=== PATIENT | female | born 1965 | race Caucasian/White ===

== ENCOUNTER → 2016-06-04 | Outpatient (CLI) | payer OTHER | LOC: FIMAGING 14:20 | PROVIDERS: ATTEND Internal Medicine Hematology & Oncology | DX: N63 Unspecified lump in breast (principal); Z85.3 Personal history of malignant neoplasm of breast | CPT/HCPCS: G0206; G0279 ==

== ENCOUNTER 2016-11-27 07:47 | Inpatient (IN) | payer OTHER ==
--- NOTE | 2016-11-27 08:12 | PDHPUP ---
History & Physical Update H&P update statement: This history and physical update is based on an assessment of the patient which was completed after admission or registration (within 24 hours), but prior to the surgery/procedure.
[2016-11-27] MEDS ORDERED: ceFAZolin 2 GM/DEXTROSE 100 ML IV ONE (08:23)
[2016-11-27] MEDS ORDERED: BUPIVACAINE/EPI 0.5% 30 ML SDV ONE (09:15)
[2016-11-27] MEDS ORDERED: LIDO/EPI 1% **for epidural** 30 ML SDV ONE ×2 (09:15→13:12)
[2016-11-27] MEDS ORDERED: LIDOCAINE 2% 5 ML SDV ONE (09:58)
[2016-11-27] MEDS ORDERED: DEXAMETHASONE 4 MG/ML VIAL ONE (09:58)
[2016-11-27] MEDS ORDERED: ONDANSETRON 4 MG/2 ML VIAL ONE ×2 (09:58→19:56)
[2016-11-27] MEDS ORDERED: ROCURONIUM 50 MG/5 ML VIAL ONE (09:58)
--- NOTE | 2016-11-27 10:02 | PDANEPAE ---
ANE History of Present Illness presents for bilateral mastectomy and reconstruction 2/2 breast cancer ANE Past Medical History - Cardiovascular History Hx Hypertension: No Hx Arrhythmias: No Hx Chest Pain: No Hx Coronary Artery / Peripheral Vascular Disease: No Hx CHF / Valvular Disease: No Hx Palpitations: No - Pulmonary History Hx COPD: No Hx Asthma/Reactive Airway Disease: No Hx Recent Upper Respiratory Infection: No Hx Oxygen in Use at Home: No Hx Sleep Apnea: No Sleep Apnea Screening Result - Last Documented: Negative - Neurologic History Hx Cerebrovascular Accident: No Hx Seizures: Yes Hx Dementia: No Neurologic History Comment: ONE SEIZURE AT AGE 1 AND AGE 49 - UNK CAUSE - Endocrine History Hx Diabetes: No - Renal History Hx Renal Disorders: No - Liver History Hx Hepatic Disorders: No - Neurological & Psychiatric Hx Hx Neurological and Psychiatric Disorders: No - Cancer History Hx Cancer: Yes Cancer History Comment: BREAST CANCER - Congenital Disorder History Hx Congenital Disorders: No - GI History Hx Gastrointestinal Disorders: No - Other Health History Other Health History: NEG - Chronic Pain History Chronic Pain: No - Surgical History Prior Surgeries: BREAST RECONSTRUCTION. LUMPECTOMY R. PYLORIC STENOSIS REPAIR INFANCY. FIBROIDECTOMY ANE Review of Systems - Exercise capacity METS (RN): 4 METS ANE Patient History - Allergies Allergies/Adverse Reactions: No Known Allergies Allergy (Unverified 11/10/12 08:46) - Home Medications Home medications: home medication list seen and reviewed Home Medications: Anastrozole [Arimidex 1 mg (*)] 1 mg PO DAILY 10/24/16 [Last Taken 11/27/16 07: 00] levETIRAcetam [Keppra 500 mg (*)] 1,000 mg PO BID 10/24/16 [Last Taken 11/27/16 07:00] - NPO status NPO Since - Liquids (Date): 11/26/16 NPO Since - Liquids (Time): 20:00 NPO Since - Solids (Date): 11/26/16 NPO Since - Solids (Time): 18:00 - Anes Hx Anes Hx: no prior problems - Smoking Hx Smoking Status: Former smoker - Family Anes Hx Family Anes Hx: none Family Hx Anesthesia Complications: NEG ANE Labs/Vital Signs - Vital Signs Blood Pressure: 154/106 Heart Rate: 75 Respiratory Rate: 16 O2 Sat (%): 95 Height: 165.1 cm Weight: 72.575 kg ANE Physical Exam - Airway Neck exam: FROM Mallampati Score: Class 1 Mouth exam: normal dental/mouth exam - Pulmonary Pulmonary: no respiratory distress - Cardiovascular Cardiovascular: regular rate and rhythym - ASA Status ASA Status: II ANE Anesthesia Plan Anesthesia Plan: general endotracheal anesthesia
[2016-11-27] MEDS ORDERED: MIDAZOLAM 2 MG/2 ML VIAL ONE (10:08)
[2016-11-27] MEDS ORDERED: PROPOFOL 200 MG/20 ML VIAL ONE ×2 (10:11→13:19)
[2016-11-27] MEDS ORDERED: fentaNYL 100 MCG/2 ML INJ ONE ×2 (10:11→13:23)
[2016-11-27] MEDS: LR 1,000 ML IV SCH ×2 (10:12→21:07)
[2016-11-27] MEDS ORDERED: MIDAZOLAM 2 MG/2 ML VIAL IVP ONE (10:15)
[2016-11-27] MEDS ORDERED: HYDROmorphONE/DILAUDID 2 MG/ML INJ ONE (10:37)
[2016-11-27] MEDS ORDERED: BUPIVACAINE 0.25% 30 ML SDV ONE (10:59)
[2016-11-27] MEDS ORDERED: epHEDrine SULFATE 10 MG/ML SYR ONE (11:15)
[2016-11-27] MEDS ORDERED: SUGAMMADEX SODIUM 200 MG/2 ML VIAL IVP ONE (13:25)
[2016-11-27] MEDS ORDERED: PROMETHAZINE HCL 25 MG/ML INJ IVP PRN ×2 (13:27→18:59)
--- NOTE | 2016-11-27 13:27 | POSTOPPROG ---
Post Op Note Date of Operation: 11/27/16 Surgeon: Osorio Negrete (, FACS) Methods And Procedures Analyst: Emeli Caceres RN-FA Anesthesiologist: Khurram Angel MD Anesthesia: GET(General Endotracheal) Pre-op Diagnosis: possible recurrent right breast CA Post-op Diagnosis: probable fat necrosis Procedure: bilateral total mastectomy/sentinel node mapping and biopsy Inf/Abcess present in the surg proc area at time of surgery?: No EBL: 50-100
[2016-11-27] MEDS ORDERED: CEFAZOLIN 2 GM/DEXTROSE/100 ML BAG IV ONE (17:33)
[2016-11-27] MEDS ORDERED: fentaNYL 100 MCG/2 ML INJ IVP PRN (18:59)
[2016-11-27] MEDS ORDERED: LR 500 ML IV PRN (18:59)
[2016-11-27] MEDS ORDERED: ONDANSETRON 4 MG/2 ML VIAL IVP PRN (18:59)
[2016-11-27] MEDS ORDERED: ACETAMINOPHEN 500 MG TAB PO PRN (18:59)
[2016-11-27] MEDS ORDERED: NALOXONE HCL 0.4 MG/ML INJ IVP PRN (18:59)
--- NOTE | 2016-11-27 19:21 | POSTOPPROG ---
Post Op Note Date of Operation: 11/27/16 Surgeon: Alber Dewitt Coloring Room Man: Analilia Caceres Anesthesia: GET(General Endotracheal) Pre-op Diagnosis: Breast Cancer Post-op Diagnosis: Same Procedure: Immediate latissimus flap and implant breast reconstructions post mastectom Inf/Abcess present in the surg proc area at time of surgery?: No Drains: Jf Lee
--- NOTE | 2016-11-27 19:26 | POSTANESTH ---
Post Anesthetic Evaluation Cardiovascular Status: Normal, Stable Respiratory Status: Normal, Stable Level of Consciousness/Mental Status: Can Participate in Eval Pain Control: Adequate, Prn Tx Ordered Nausea/Vomiting Control: Adequate, Prn Tx Ordered Complications Possibly Related to Anesthesia: None Noted
[2016-11-27] MEDS ORDERED: HYDROmorphONE/DILAUDID 1 MG/ML SYR ONE (19:56)
[2016-11-27] MEDS: HYDROmorphONE/DILAUDID 1 MG/ML SYR IVP PRN ×3 (19:58→20:26)
[2016-11-27] MEDS ORDERED: PROMETHAZINE HCL 25 MG/ML INJ ONE (20:07)
--- NOTE | 2016-11-27 20:09 | GOP ---
[f rep st] OPERATIVE REPORT DATE OF OPERATION: 11/27/2016 SURGEON: Osorio Negrete MD, FACS FOUR H AGENT: DAYNE Merino ANESTHESIA: General endotracheal. ANESTHESIOLOGIST: Khurram Angel MD PREOPERATIVE DIAGNOSIS: 1. Right breast mass. 2. Status post right partial mastectomy. 3. [place] lymph node biopsy and whole breast radiation for right breast cancer. POSTOPERATIVE DIAGNOSIS: 1. Right breast mass. 2. Status post right partial mastectomy. 3. [place] lymph node biopsy and whole breast radiation for right breast cancer. PROCEDURE PERFORMED: 1. Bilateral total mastectomy. 2. Bilateral sentinel lymph node mapping and superficial axillary lymph node dissection. FINDINGS: Large inflammatory seroma cavity in the right breast with a mass- like effect at the perimeter of the cavity. Frozen section intraoperatively revealing fat necrosis. Bilateral sentinel nodes submitted for permanent section. Right-sided sentinel nodes negative by frozen section. DESCRIPTION OF PROCEDURE: After informed consent was obtained, the patient was brought to the operating room and placed under general anesthesia. Both breasts and the chest wall were prepped and draped in the usual fashion. She received 2 g of Invanz. Before proceeding, a time-out identification of the patient was performed. The patient had undergone prior reduction mammoplasty and had an asymmetry with deformity in the right breast. Dr. Dewitt had assessed her preoperatively and was planning on bilateral latissimus dorsi reconstruction. The prior reduction mammoplasty scars were excised with the mastectomy specimen, resulting an anchor -shaped incision on either side. The right breast was performed first. The flaps were elevated after the incision was made with a scalpel, with cautery dissecting the overlying skin from the underlying breast tissue and breast fat. Dissection was carried out cephalad to the infraclavicular fossa, medially to the sternal border, inferiorly to the inframammary fold, and laterally to the latissimus border. As the breast was dissected away from the chest wall starting medially and extending laterally, the prior radiation boost to the cavity was noted and a small thin section, approximately 2-3 mm thick and 2 x 3 cm in size deep to the radiation bed, was excised from the pectoralis muscle. This was left attached to the mastectomy specimen. Dissection was then carried out lateral to the pectoralis border, posteriorly to the latissimus border, and cephalad to the axilla. Hemostasis was secured with cautery and hemoclips primarily. At this juncture, I left breast attached and used the gamma probe to identify 2 sentinel nodes adjacent. Uninvolved fatty tissue was submitted separately for permanent section as nonsentinel tissue. Specimens were found to show no evidence of malignancy by frozen section. The breast was amputated with the tail and the adjacent vessels were hemoclipped and divided. The specimen was tagged for orientation and noted to contain a firm mass in the superior aspect of the breast central, extending from [id number] margins. The anterior margin was tagged with a suture and a margin marker kit with 6 different colored Inks were used to orient the specimen separately designating the anterior, posterior, medial, lateral, superior, inferior margins. Dr. Choi reviewed the specimen intraoperatively and found a seroma cavity with nodular areas, particularly along the anterior surface of this, and performed a frozen section of the most suspicious area, which looked like fat necrosis. Final diagnosis will be deferred to permanent section. Hemostasis appeared secure within the operative field. A mirror-image incision was made over the left breast and flaps were elevated in a similar fashion. The breast was from [id number]. There were no suspicious areas of tissue and there was no prior history of cancer in the left breast. As the specimen was dissected laterally along the serratus muscle and cephalad to the axilla, the sentinel nodes were again identified. A single sentinel node was identified on the left side and this appeared normal in size. It was from surrounding fibrofatty tissue. Lymphovascular structures were hemoclipped and divided and the node was submitted for permanent section. The breast was amputated and vessels were hemoclipped and divided. The specimen was removed from the field, tagged for orientation, and submitted for permanent section. Breast flaps appeared viable. Dr. Dewitt then scrubbed in to perform immediate reconstruction, will be dictated as a separate operative report. Prior to starting the procedure, bilateral intercostal blocks were performed with 5 cc of 0.25% Marcaine delivered into the intercostal space between the 4th and 8th ribs laterally along the latissimus border. Estimated blood loss for this portion of the procedure, 100 mL. COMPLICATIONS: None. /[id number]/MODL MTDD
[2016-11-27] MEDS: ceFAZolin 2 GM/DEXTROSE 100 ML IV SCH (23:54)
--- NOTE | 2016-11-28 00:04 | GOP ---
[f rep st] OPERATIVE REPORT DATE OF OPERATION: 11/27/2016 SURGEON: Alber Dewitt MD LEAD SOFTWARE ENGINEER: Kailash Caceres, INFRASTRUCTURE TECHNICIAN PREOPERATIVE DIAGNOSIS: Breast cancer. POSTOPERATIVE DIAGNOSIS: Breast cancer. PROCEDURE PERFORMED: Bilateral immediate latissimus flap and implant reconstruction post mastectomy. FINDINGS: DESCRIPTION OF PROCEDURE: Patient was lying supine under general anesthesia at the conclusion of the mastectomies performed by Dr. Negrete. Dissection was taken into the posterior axillary line and the surfaces of the latissimus were exposed and the thoracodorsal nerves were resected for 2 cm on each side. Temporary staple closure was then carried out and dressings were applied. Patient was then turned prone for the next stage of the procedure. The entire back area was prepped and draped in the usual fashion. Incisions were made according to preoperative markings in the relaxed skin tension lines with elliptical areas of skin incised. Most of this area of skin was de- epithelialized and in the central portion on each side, a skate flap nipple reconstruction was performed and sutured with 4-0 and 5-0 chromic. Dissection was then taken superiorly and inferiorly preserving fat on the surface of the latissimus muscle. Muscle was divided distally and brought back in a distal-to- proximal fashion. Once the axillary pocket was encountered on both sides, the flaps were transferred up into that area. Closure on the back was carried out over 10 mm flat Jf-Lee drains using a layer of mattress sutures of 3-0 Stratafix to help eliminate space. The skin was then closed with 3-0 Stratafix running subcuticular sutures. Dressings of Steri-Strips and gauze were applied. The patient was then turned supine for final part of the procedure and inset of the flaps was carried out with 3-0 PDS and 3-0 Vicryl. The Allergan Natrelle Inspira moderate-profile, smooth-surface silicone gel, 310 cc silicone implants , were then placed bilaterally underneath the muscles, and the skin closure was then carried out with 3-0 Stratafix running subcuticular sutures. 10 mm flat Jf-Lee drains were placed bilaterally. Dressings of Steri-Strips and gauze were applied. Procedure was tolerated well. Estimated blood loss 125 mL. /[id number]/MODL MTDD
[2016-11-28] MEDS: HYDROmorphONE/DILAUDID 1 MG/ML SYR IVP PRN ×3 (01:48→09:09)
[2016-11-28] MEDS: ceFAZolin 2 GM/DEXTROSE 100 ML IV SCH (02:23)
[2016-11-28 04:59] LABS: % IMMATURE GRANULYOCYTES 0.1 % (0.0-1.1); ABSOLUTE IMMATURE GRANULOCYTES 0.01 10^3/uL (0.00-0.10); ADD DIFF? NO; ADD MORPH? NO; ADD SCAN? NO; ATYPICAL LYMPHOCYTE FLAG 0 (0-99); FRAGMENT RBC FLAG 0 (0-99); HEMOGLOBIN 10.9 g/dL (12.6-16.3); LEFT SHIFT FLG 70 (0-99); LIPEMIA HEMOLYSIS FLAG 80 (0-99); MEAN CELL HEMOGLOBIN 30.7 pg (27.9-34.1); PLATELET CLUMPS FLAG 0 (0-99); PLATELET COUNT 307 10^3/uL (150-400); RED BLOOD CELL COUNT 3.55 10^6/uL (4.18-5.33); RED CELL DISTRIBUTION WIDTH 13.2 % (11.5-15.2)
[2016-11-28 05:09] LABS: ANION GAP 11 mEq/L (8-16); CALCIUM 9.3 mg/dL (8.5-10.4); CARBON DIOXIDE 24 mEq/l (22-31); CHLORIDE 103 mEq/L (97-110); CREATININE 0.7 mg/dL (0.6-1.0); GLOMERULAR FILTRATION RATE > 60; GLUCOSE 113 mg/dL (70-100); POTASSIUM 4.2 mEq/L (3.5-5.2); SODIUM 138 mEq/L (134-144)
[2016-11-28] MEDS: LR 1,000 ML IV SCH ×3 (05:22→19:48)
[2016-11-28] MEDS: ONDANSETRON 4 MG/2 ML VIAL IVP PRN ×2 (08:50→19:48)
[2016-11-28] MEDS ORDERED: ENOXAPARIN 40 MG/0.4 ML SYR SC SCH (09:00)
[2016-11-28] MEDS: OXYCODONE/APAP 5/325 TAB PO PRN ×3 (09:56→19:49)
--- NOTE | 2016-11-28 13:15 | SOAPPROG ---
SOAP Progress Note Assessment/Plan: Assessment:Doing well Plan: Home in 1-2 days 11/28/16 13:15 Objective: Latissimus flap skin paddles look good. Vital Signs Temp Pulse Resp BP Pulse Ox 37.0 C 97 16 140/87 H 94 11/28/16 12:02 11/28/16 12:02 11/28/16 12:02 11/28/16 12:02 11/28/16 12:02 Laboratory Results 11/28/16 04:37 11/28/16 04:37 11/27/16 11/28/16 11/29/16 05:59 05:59 05:59 Intake Total 5033 Output Total 670 149 Balance 4363 -149 ICD10 Worksheet Patient Problems: Problems Problem Status Onset Hx of breast cancer Acute Mass of right breast Acute
--- NOTE | 2016-11-28 13:36 | SOAPPROG ---
SOAP Progress Note Assessment/Plan: Assessment: s/p bilateral mastectomy/reconstruction possible left mastectomy site hematoma Plan: ice/NPO/serial exam check H/H 11/28/16 13:34 Subjective: resting comfortably Objective: Vital Signs Temp Pulse Resp BP Pulse Ox 37.0 C 97 16 140/87 H 94 11/28/16 12:02 11/28/16 12:02 11/28/16 12:02 11/28/16 12:02 11/28/16 12:02 Laboratory Results 11/28/16 04:37 11/28/16 04:37 11/27/16 11/28/16 11/29/16 05:59 05:59 05:59 Intake Total 5033 Output Total 670 149 Balance 4363 -149 Physical Exam - Physical Exam General Appearance: no apparent distress, mild distress Respiratory: lungs clear Cardiac/Chest: regular rate, rhythm Skin: other (left superior mastectomy site swelling/possible post op hematoma) Neuro/Psych: alert, normal mood/affect, oriented x 3 ICD10 Worksheet Patient Problems: Problems Problem Status Onset Hx of breast cancer Acute Mass of right breast Acute - ICD10 Problem Qualifiers (1) Hx of breast cancer (2) Mass of right breast
[2016-11-28 14:06] LABS: % IMMATURE GRANULYOCYTES 0.2 % (0.0-1.1); ABSOLUTE IMMATURE GRANULOCYTES 0.02 10^3/uL (0.00-0.10); ADD DIFF? NO; ADD MORPH? NO; ADD SCAN? NO; ATYPICAL LYMPHOCYTE FLAG 0 (0-99); FRAGMENT RBC FLAG 0 (0-99); HEMATOCRIT 34.6 % (38.0-47.0); HEMOGLOBIN 11.5 g/dL (12.6-16.3); LEFT SHIFT FLG 70 (0-99); LIPEMIA HEMOLYSIS FLAG 80 (0-99); MEAN CELL HEMOGLOBIN 30.9 pg (27.9-34.1); MEAN CELL HEMOGLOBIN CONCENTR. 33.2 g/dL (32.4-36.7); PLATELET CLUMPS FLAG 0 (0-99); PLATELET COUNT 286 10^3/uL (150-400); RED BLOOD CELL COUNT 3.72 10^6/uL (4.18-5.33); RED CELL DISTRIBUTION WIDTH 13.3 % (11.5-15.2)
--- NOTE | 2016-11-28 19:03 | SOAPPROG ---
Downtime Inpatient MD Late Entry SOAP Note: Dr. Dewitt evaluated/probable shift of implant rather than hematoma appears stable will monitor
[2016-11-28] MEDS: levETIRAcetam 500 MG TAB PO SCH (21:06)
[2016-11-29] MEDS: OXYCODONE/APAP 5/325 TAB PO PRN ×5 (02:15→19:49)
[2016-11-29 05:07] LABS: HEMATOCRIT 30.3 % (38.0-47.0)
[2016-11-29] MEDS: LR 1,000 ML IV SCH (06:05)
[2016-11-29] MEDS: levETIRAcetam 500 MG TAB PO SCH ×2 (09:00→19:49)
[2016-11-29] MEDS: ANASTROZOLE 1 MG TAB PO SCH (09:01)
--- NOTE | 2016-11-29 12:32 | SOAPPROG ---
SOAP Progress Note Assessment/Plan: Assessment: s/p bilateral mastectomy/reconstruction clinically stable with moderate post op pain controlled with Percocet Plan: continue supportive care anticipate discharge tomorrow 11/28/16 13:34 11/29/16 12:30 Subjective: resting comfortably/[place] Objective: Vital Signs Temp Pulse Resp BP Pulse Ox 37.1 C 86 16 160/82 H 95 11/29/16 11:40 11/29/16 11:40 11/29/16 11:40 11/29/16 11:40 11/29/16 11:40 Laboratory Results 11/29/16 04:28 11/28/16 04:37 11/28/16 11/29/16 11/30/16 05:59 05:59 05:59 Intake Total 5033 1800 Output Total 670 474 80 Balance 4363 1326 -80 Physical Exam - Physical Exam General Appearance: alert, mild distress Respiratory: lungs clear, normal breath sounds Cardiac/Chest: regular rate, rhythm Skin: other (mastectomy flaps appear viable/mild asymmetry with left implant higher than right/drains clearing) ICD10 Worksheet Patient Problems: Problems Problem Status Onset Hx of breast cancer Acute Mass of right breast Acute - ICD10 Problem Qualifiers (1) Hx of breast cancer (2) Mass of right breast
[2016-11-30] MEDS: OXYCODONE/APAP 5/325 TAB PO PRN ×5 (01:37→23:01)
[2016-11-30] MEDS: levETIRAcetam 500 MG TAB PO SCH ×2 (09:17→21:12)
[2016-11-30] MEDS: ANASTROZOLE 1 MG TAB PO SCH (09:17)
[2016-11-30] MEDS ORDERED: MAGNESIUM HYDROXIDE 30 ML UDCUP PO PRN (11:06)
--- NOTE | 2016-11-30 11:15 | SOAPPROG ---
SOAP Progress Note Assessment/Plan: Assessment: s/p bilateral mastectomy/reconstruction clinically stable with moderate post op pain controlled with Percocet BP steadily rising since surgery and noted to be elevated prior to surgery Plan: continue supportive care/Bowel program/start low dose Enalapril anticipate discharge 12/0111/28/16 13:34 11/29/16 12:30 11/30/16 11:17 Subjective: moderate pain/no BM since surgery Objective: Vital Signs Temp Pulse Resp BP Pulse Ox 36.8 C 93 17 177/99 H 92 11/30/16 09:06 11/30/16 09:06 11/30/16 09:06 11/30/16 09:06 11/30/16 09:06 Laboratory Results 11/29/16 04:28 11/28/16 04:37 11/29/16 11/30/16 12/01/16 05:59 05:59 05:59 Intake Total 1800 2700 Output Total 474 360 Balance 1326 2340 BP persistantly elevated since surgery - Pending Discharge Pending Discharge Within 24 Hours: Yes Pending Discharge Date: 12/01/16 Pending Discharge Time: 11:00 Physical Exam - Physical Exam General Appearance: alert, mild distress Respiratory: lungs clear, decreased breath sounds Cardiac/Chest: regular rate, rhythm Skin: other (mastectomy sites uncomplicated) Neuro/Psych: alert, normal mood/affect ICD10 Worksheet Patient Problems: Problems Problem Status Onset Hx of breast cancer Acute Mass of right breast Acute - ICD10 Problem Qualifiers (1) Hx of breast cancer (2) Mass of right breast
[2016-11-30] MEDS: SENNOSIDES/DOCUSATE SODIUM TAB PO SCH ×2 (12:37→21:12)
[2016-11-30] MEDS: ENALAPRIL MALEATE 2.5 MG TAB PO SCH (12:37)
[2016-12-01] MEDS: OXYCODONE/APAP 5/325 TAB PO PRN ×3 (05:48→14:29)
--- NOTE | 2016-12-01 08:50 | PDDCSUM ---
Discharge Summary Discharge Summary: DOA: 11/27/16 DOD: 12/01/16 Procedure: 11/27/16 Bilateral total mastectomy, sentinel node mapping and biopsy , immediate reconstruction with bilateral lat dorsi flaps/implants DC Dx: 1. hx breast cancer 2. right breast mass 3. seizure disorder 4. hypertension 5. hypoxemia DC Rx: Percocet 5/325 1-2 po q4H prn#40 Senokot-S 1-2 po BID prn #30 Enalapril 2.5 mg po qDay #30 Keppra 500mg po BID resume Arimidex 1mg po q day resume Course: Heydi was admitted for bilateral mastectomy and reconstruction. She had a prior right partial mastectomy/SLN bx/RT and several years later developed a suspicious mass in the right breast at the lumpectomy site on imaging. She wanted to proceed with mastectomy without a biopsy pre-operatively. Surgery on the day of admission showed probable fat necrosis on frozen section. Final path remains pending at the time of discharge. Following surgery she had moderate to severe nausea and pain. Her BP remained up despite narcotics and she was started on low dose Enalapril. She was restarted on Keppra and Arimidex. Her O2 sats were borderline low and she was on supplemental O2 throughout most of her stay. With IS her sats were in the 90's on RA. Surgical sites were uncomplicated at the time of discharge. She will follow up tomorrow with Dr. Dewitt and I will call her with pathology results. Brooklyn Negrete MD, FACS
[2016-12-01] MEDS: levETIRAcetam 500 MG TAB PO SCH (10:02)
[2016-12-01] MEDS: ANASTROZOLE 1 MG TAB PO SCH (10:03)
[2016-12-01] MEDS: ENALAPRIL MALEATE 2.5 MG TAB PO SCH (10:03)
[2016-12-01] MEDS: SENNOSIDES/DOCUSATE SODIUM TAB PO SCH (10:20)
[2016-12-01 15:49] VITALS: BP 135/80; PULSE 76; RESP 16; TEMP 98.6; O2SAT 95
== END 2016-12-01 17:06 | disposition home or self-care (01) | DRG 581 ==
LOC: F3N 07:47 → EDSTATUS 10:00 → F1N 20:13 → OBSVTOIN 11-28 15:46
PROVIDERS: ADMIT Surgery; ATTEND Surgery
PROC: 07B60ZX Excision of Left Axillary Lymphatic, Open Approach, Diagnostic (ICD-10-PCS; principal; 2016-11-27 10:00)
PROC: 0HTV0ZZ Resection of Bilateral Breast, Open Approach (ICD-10-PCS; principal; 2016-11-27 10:00)
PROC: 07B50ZX Excision of Right Axillary Lymphatic, Open Approach, Diagnostic (ICD-10-PCS; principal; 2016-11-27 10:00)
PROC: 0HRV075 Replacement of Bilateral Breast using Latissimus Dorsi Myocutaneous Flap, Open Approach (ICD-10-PCS; 2016-11-27 10:00)
PROC: 3E0W3HZ Introduction of Radioactive Substance into Lymphatics, Percutaneous Approach (ICD-10-PCS; 2016-11-27 10:00)
DX: D24.1 Benign neoplasm of right breast (principal); D24.2 Benign neoplasm of left breast; N64.1 Fat necrosis of breast; Z85.3 Personal history of malignant neoplasm of breast; R09.02 Hypoxemia; G40.909 Epilepsy, unspecified, not intractable, without status epilepticus; I10 Essential (primary) hypertension
CPT/HCPCS: 97116-GP; 97161-GP; 97165-GO; A9520; C1789; G0378; J0690; J1100; J1170; J1650; J2250; J2405; J2550; J2704; J3010

== ENCOUNTER → 2017-03-11 | Outpatient (CLI) | payer OTHER | LOC: FIMAGING 08:33 | PROVIDERS: ATTEND Internal Medicine Hematology & Oncology | DX: Z13.820 Encounter for screening for osteoporosis (principal); M85.89 Other specified disorders of bone density and structure, multiple sites ==

== ENCOUNTER → 2017-08-04 | Outpatient (CLI) | payer OTHER ==
--- NOTE | 2017-08-04 16:05 | CPEEG ---
[f rep st] ELECTROENCEPHALOGRAM A 4-HOUR VIDEO EEG. DATE OF STUDY: 08/04/2017 INTERPRETATION: This 4-hour video EEG recording is normal. There were no potentially epileptogenic abnormalities present in the awake or sleep recordings. During the video EEG monitoring session, the patient did not have any clinical events per report. REPORT: This 4 hour video EEG contains 10 Hz alpha activity over the posterior head regions. The background activity was normal and symmetric. There was no abnormal activation at rest, during photic stimulation or hyperventilation. The patient intermittently became drowsy and fell asleep for brief periods during the study. There was no abnormal activation during drowsiness, sleep, or during times of arousal. There were no extended periods of sleep during the 4 hour study. The patient did not have any clinical events during the video EEG monitoring session. /[id number]/MODL MTDD
== END ==
LOC: FCPNEURO 09:42
PROVIDERS: ATTEND Psychiatry & Neurology Neurology
DX: G40.909 Epilepsy, unspecified, not intractable, without status epilepticus (principal)

== ENCOUNTER 2018-03-11 08:46 | Day surgery (SDC) | payer OTHER ==
--- NOTE | 2018-03-09 10:22 | GHP ---
DATE OF ADMISSION: 03/11/2018 PREOPERATIVE DIAGNOSIS: Breast cancer reconstruction. HISTORY OF PRESENTING COMPLAINT: The patient is a 52-year-old woman who had breast cancer diagnosed in the right breast in 2012. She underwent lumpectomy and radiation. Her lymph nodes were negative at that time. In 2013, she underwent reconstruction with a left reduction and a right mastopexy. In 2016, she noted hardening of the tissue in the right breast. She opted to undergo breast reconstruc tion with bilateral mastectomy and latissimus flap and implant reconstruction. This was carried out in November of 2016, and she had an uneventful recovery. She has done quite well, but has noted some a symmetry with the right side ending up slightly larger than the left side. The plan is now to replac e the implant on the left side with a slightly smaller one. PAST MEDICAL HISTORY: Otherwise generally unremarkable. She has had a total of 2 seizures in her li fe for which she takes Keppra and she has otherwise been pretty healthy. MEDICATIONS: Keppra and anastrozole. SURGICAL HISTORY: As documented above and she had surgery for uterine fibroids, and in infancy had s urgery for pyloric stenosis. ALLERGIES: No known drug allergies. EXAMINATION: GENERAL: She is a healthy-looking 52-year-old woman. CARDIOVASCULAR: Heart sounds ar e normal. Respiratory: Clear with good air entry. IMPRESSION: Fit for procedure. PLAN: Removal of left breast implant and replacement. /[id number]/MODL
[2018-03-11] MEDS ORDERED: ceFAZolin 2 GM/DEXTROSE 100 ML IV ONE (09:12)
[2018-03-11] MEDS ORDERED: LR 1,000 ML IV ONE (09:13)
[2018-03-11] MEDS ORDERED: LIDOCAINE 1% 2 ML INJ ID PRN (09:13)
[2018-03-11] MEDS ORDERED: MIDAZOLAM 2 MG/2 ML VIAL IVP ONE (09:44)
--- NOTE | 2018-03-11 09:44 | PDANEPAE ---
ANE History of Present Illness 52 yo for implant exchange ANE Past Medical History - Cardiovascular History Hx Hypertension: No Hx Arrhythmias: No Hx Chest Pain: No Hx Coronary Artery / Peripheral Vascular Disease: No Hx CHF / Valvular Disease: No Hx Palpitations: No - Pulmonary History Hx COPD: No Hx Asthma/Reactive Airway Disease: No Hx Recent Upper Respiratory Infection: No Hx Oxygen in Use at Home: No Hx Sleep Apnea: No Sleep Apnea Screening Result - Last Documented: Negative - Neurologic History Hx Cerebrovascular Accident: No Hx Seizures: Yes Hx Dementia: No Neurologic History Comment: ONE SEIZURE AT AGE 1 AND AGE 49 - UNK CAUSE - Endocrine History Hx Diabetes: No - Renal History Hx Renal Disorders: No - Liver History Hx Hepatic Disorders: No - Neurological & Psychiatric Hx Hx Neurological and Psychiatric Disorders: No - Cancer History Hx Cancer: Yes Cancer History Comment: BREAST CANCER - Congenital Disorder History Hx Congenital Disorders: No - GI History Hx Gastrointestinal Disorders: No - Other Health History Other Health History: none - Chronic Pain History Chronic Pain: No - Surgical History Prior Surgeries: Bilateral mastectomy with reconstruction 11/2016. BREAST RECONSTRUCTION. LUMPECTOMY R. PYLORIC STENOSIS REPAIR when an infant. FIBROIDECTOMY ANE Review of Systems Review of Systems: - Exercise capacity METS (RN): 5 METS ANE Patient History - Allergies Allergies/Adverse Reactions: No Known Allergies Allergy (Unverified 03/02/18 11:30) - Home Medications Home medications: home medication list seen and reviewed Home Medications: Anastrozole [Arimidex 1 mg (*)] 03/02/18 [Last Taken 1 Day Ago ~03/10/18] Keppra 03/02/18 [Last Taken 03/11/18 06:30] - NPO status NPO Status: no food or drink >8 hours NPO Since - Liquids (Date): 03/11/18 NPO Since - Liquids (Time): 06:45 NPO Since - Solids (Date): 03/10/18 NPO Since - Solids (Time): 19:00 - Anes Hx Anes Hx: no prior problems - Smoking Hx Smoking Status: Former smoker - Family Anes Hx Family Hx Anesthesia Complications: NEG ANE Labs/Vital Signs - Vital Signs Blood Pressure: 113/95 Heart Rate: 70 Respiratory Rate: 18 O2 Sat (%): 99 Height: 5 ft 4 in Weight: 68.039 kg ANE Physical Exam - Airway Neck exam: FROM Mallampati Score: Class 2 Mouth exam: normal dental/mouth exam - Pulmonary Pulmonary: no respiratory distress - Cardiovascular Cardiovascular: regular rate and rhythym - ASA Status ASA Status: II ANE Anesthesia Plan Anesthesia Plan: GA w LMA
[2018-03-11] MEDS ORDERED: LIDO/EPI 1% **for epidural** 30 ML SDV ONE (09:51)
[2018-03-11] MEDS ORDERED: fentaNYL 100 MCG/2 ML INJ ONE (09:53)
[2018-03-11] MEDS ORDERED: PROPOFOL/EMULSION 500 MG/50 ML BOTTLE IV ONE (09:53)
--- NOTE | 2018-03-11 10:06 | PDHPUP ---
History & Physical Update H&P update statement: This history and physical update is based on an assessment of the patient which was completed after admission or registration (within 24 hours), but prior to the surgery/procedure. H&P update: no change in patient's condition since H&P completed
[2018-03-11] MEDS ORDERED: HYDROCODONE/APAP 5/325 TAB PO PRN (11:02)
[2018-03-11] MEDS ORDERED: ONDANSETRON 4 MG/2 ML VIAL IVP PRN (11:02)
[2018-03-11] MEDS ORDERED: NALOXONE HCL 0.4 MG/ML INJ IVP PRN (11:02)
[2018-03-11] MEDS ORDERED: fentaNYL 100 MCG/2 ML INJ IVP PRN (11:02)
--- NOTE | 2018-03-11 11:03 | POSTANESTH ---
Post Anesthetic Evaluation Cardiovascular Status: Normal, Stable Respiratory Status: Normal, Stable Level of Consciousness/Mental Status: Can Participate in Eval, Mildly Sleepy, Arousable Pain Control: Adequate, Prn Tx Ordered Nausea/Vomiting Control: Adequate, Prn Tx Ordered Complications Possibly Related to Anesthesia: None Noted
--- NOTE | 2018-03-11 11:04 | POSTOPPROG ---
Post Op Note Date of Operation: 03/11/18 Surgeon: Alber Dewitt Anesthesiologist: Liz Anesthesia: LMA Pre-op Diagnosis: Breast Cancer Post-op Diagnosis: Same Procedure: Revision Left breast implant pocket and replacement of implant Inf/Abcess present in the surg proc area at time of surgery?: No EBL: Minimal
[2018-03-11 11:40] VITALS: BP 138/95
--- NOTE | 2018-03-11 19:37 | GOP ---
DATE OF OPERATION: 03/11/2018 SURGEON: Alber Dewitt MD PREOPERATIVE DIAGNOSIS: Breast cancer. POSTOPERATIVE DIAGNOSIS: Breast cancer. PROCEDURE PERFORMED: Revision of left breast implant pocket and replacement of left breast implant. FINDINGS: ESTIMATED BLOOD LOSS: Less than 5 mL. DESCRIPTION OF PROCEDURE: With the patient lying supine under general anesthesia, anterior chest reg ion was prepped and draped in usual fashion. Incision was made at the lateral aspect of the periareo lar scar and excision of the indented skin was carried out. Dissection was then carried down through subcutaneous fat to latissimus muscle. The muscle was opened in a splitting fashion in line with th e muscle fibers and the breast implant capsule was opened with electrocautery. The existing implant was removed. Capsulotomy was carried out of the medial and inferior portion of the capsule. A new A llergan Naturale Inspira 225 cc smooth surface moderate profile implant was placed. Closure was patino ied out with 3-0 Vicryl to the muscle and to the deep tissue. Closure of skin was with 3-0 Vicryl in verted dermal sutures and 3-0 Prolene running subcuticular sutures. Dressing of Steri-Strips and gau ze applied. The procedure was tolerated well. /[id number]
== END 2018-03-11 12:31 | disposition home or self-care (01) ==
LOC: FSGY 08:46
PROVIDERS: ATTEND Plastic Surgery
DX: N65.1 Disproportion of reconstructed breast (principal); Z85.3 Personal history of malignant neoplasm of breast; Z86.69 Personal history of other diseases of the nervous system and sense organs
CPT/HCPCS: C1789; J0690; J2250; J2704; J3010